=== PATIENT | female | born 1950 | race African-American/Black ===

== ENCOUNTER 2020-06-06 12:46 | Inpatient (IN) ==
[2020-06-06] MEDS ORDERED: METOCLOPRAMIDE 10 MG/2 ML VIAL IV STA (14:45)
[2020-06-06] MEDS ORDERED: ONDANSETRON 4 MG/2 ML VIAL IV STA (14:45)
[2020-06-06] MEDS ORDERED: SODIUM CHLORIDE 0.9% 1,000 ML IV STA (14:45)
[2020-06-06] MEDS ORDERED: PANTOPRAZOLE 40 MG VIAL IV STA (14:45)
[2020-06-06 15:09] LABS: Albumin 3.3 G/DL (3.4-5.0); Bilirubin,Total 0.8 MG/DL (0.2-1.0); Calcium 9.2 MG/DL (8.5-10.1); Osmolality,Calculated 288.8 MOS/KG (273-304); Potassium 4.3 MMOL/L (3.5-5.1)
[2020-06-06 15:10] LABS: Basophils % 0.1 % (0.0-0.8); Eosinophils # 0.1 10*3/uL (0.0-0.87); Eosinophils % 0.7 % (0.00-10.9); Hematocrit 41.6 VOL% (35.7-47.0); Immature Granulocytes % 0.4 %; Immature Granulocytes Absolute 0.03 #; Lymphocytes # 1.2 10*3/uL (1.4-4.0); Lymphocytes % 16.3 % (21.3-54.2); Mean Corpuscular HGB Conc 30.5 GM/DL (32-36); Mean Platelet Volume 10.5 FL (9.6-12.0); Monocytes % 8.6 % (1.7-12.7); Neutrophils % 73.9 % (38.7-73.9); Platelet Count 201 T/CUMM (130-400); Red Cell Distribution Width 15.5 % (9.3-17.3); White Blood Count 7.2 T/CUMM (4-12)
[2020-06-06 15:12] LABS: Hemoglobin 12.7 GM/DL (12.0-16.0)
[2020-06-06 15:15] LABS: Lymphocytes 16 % (20-55); Platelet Estimate Normal; Segmented Neutrophils 74 % (50-85); Total Cells Counted 100
[2020-06-06 15:16] LABS: Atypical Lymphocytes Few; Hypochromasia Slight; Microcytosis Slight; Polychromasia Slight
[2020-06-06 15:49] LABS: Troponin I < 0.015 NG/ML (0.00-0.045)
[2020-06-06] MEDS ORDERED: ONDANSETRON 4 MG/2 ML VIAL IV PRN (16:11)
[2020-06-06] MEDS ORDERED: GLUCAGON 1 MG VIAL IM PRN (16:11)
[2020-06-06] MEDS ORDERED: DEXTROSE 50% 25 GM/50 ML VIAL IV PRN (16:11)
[2020-06-06] MEDS ORDERED: AZITHROMYCIN INJ 500 MG in SODIUM CHLORIDE 0.9% 250 ML IV STA (16:15)
[2020-06-06] MEDS: LACTATED RINGERS 1,000 ML IV SCH (18:37)
[2020-06-06 18:49] LABS: Bacteria,Urine Occasional /HPF (Few); Bilirubin,Urine Negative (Negative); Blood, Urine Negative (Negative); Glucose,Urine (UA) Negative (Negative); Ketones,Urine 5 mg/dL (Negative); Mucus,Urine Occasional /LPF (Occasional); Nitrite,Urine Negative (Negative); Protein,Urine 30 MG/DL; RBC,Urine 3 /HPF (0-4); Squamous Epithelial Cell,Urine Occasional /HPF (0-10); Urine Appearance CLEAR (Clear); Urine Color Yellow (Yellow); Urine Specific Gravity 1.015 (1.001-1.035); WBC,Urine 9 /HPF (0-6)
[2020-06-06] MEDS: DOCUSATE SODIUM 100 MG CAPSULE PO SCH (21:00)
[2020-06-06] MEDS ORDERED: REMDESIVIR 200 MG in SODIUM CHLORIDE 0.9% 210 ML IV ONE (21:00)
[2020-06-06] MEDS: ENOXAPARIN 40 MG/0.4 ML SYRINGE SUBCUT SCH (21:53)
[2020-06-06] MEDS: INSULIN LISPRO 100 UNIT/ML SUBCUT SCH (21:53)
[2020-06-07] MEDS: LACTATED RINGERS 1,000 ML IV SCH ×3 (05:23→15:36)
[2020-06-07] MEDS: PANTOPRAZOLE 40 MG TABLET PO SCH (05:58)
[2020-06-07 06:48] LABS: Calcium 8.8 MG/DL (8.5-10.1); Potassium 3.9 MMOL/L (3.5-5.1)
[2020-06-07] MEDS: DOCUSATE SODIUM 100 MG CAPSULE PO SCH ×2 (08:20→20:08)
[2020-06-07] MEDS: ZINC GLUCONATE 50 MG TABLET PO SCH (08:20)
[2020-06-07] MEDS: DEXAMETHASONE 4 MG TABLET PO SCH ×3 (08:20→20:08)
[2020-06-07] MEDS: CHOLECALCIFEROL 5,000 UNIT TABLET PO SCH (08:20)
[2020-06-07] MEDS: METOPROLOL SUCCINATE XL 100 MG TABLET PO SCH (08:21)
[2020-06-07] MEDS: ASCORBIC ACID 500 MG TABLET PO SCH (08:21)
[2020-06-07] MEDS: INSULIN LISPRO 100 UNIT/ML SUBCUT SCH ×4 (08:22→20:08)
[2020-06-07] MEDS: cefTRIAXone 1,000 MG in SYRINGE 1 EACH IV SCH (08:23)
[2020-06-07] MEDS: REMDESIVIR 100 MG in SODIUM CHLORIDE 0.9% 100 ML IV SCH (09:18)
[2020-06-07] MEDS: sitaGLIPtin 100 MG TABLET PO SCH ×2 (11:27→16:00)
[2020-06-07] MEDS: ENOXAPARIN 40 MG/0.4 ML SYRINGE SUBCUT SCH (20:09)
[2020-06-08] MEDS: LACTATED RINGERS 1,000 ML IV SCH ×3 (00:31→15:38)
[2020-06-08 06:03] LABS: Basophils % 0.3 % (0.0-0.8); Hematocrit 39.5 VOL% (35.7-47.0); Immature Granulocytes % 1.2 %; Immature Granulocytes Absolute 0.04 #; Lymphocytes # 0.7 10*3/uL (1.4-4.0); Lymphocytes % 19.1 % (21.3-54.2); Mean Corpuscular HGB Conc 30.4 GM/DL (32-36); Mean Corpuscular Volume 80.8 FL (87-102); Mean Platelet Volume 9.9 FL (9.6-12.0); Monocytes % 3.8 % (1.7-12.7); Neutrophils % 75.6 % (38.7-73.9); Platelet Count 238 T/CUMM (130-400); Red Blood Count 4.89 MC/CUMM (3.8-5.5); Red Cell Distribution Width 15.2 % (9.3-17.3); White Blood Count 3.5 T/CUMM (4-12)
[2020-06-08] MEDS: PANTOPRAZOLE 40 MG TABLET PO SCH (06:27)
[2020-06-08 06:28] LABS: Atypical Lymphocytes Few; Band Neutrophils 2 % (0-10); Hypochromasia 1+; Lymphocytes 23 % (20-55); Microcytosis 1+; Ovalocytes Slight; Platelet Estimate Normal; Promyelocytes 2 %; Segmented Neutrophils 71 % (50-85); Total Cells Counted 100
[2020-06-08 06:28] LABS: Albumin 2.5 G/DL (3.4-5.0); Bilirubin,Direct 0.19 MG/DL (0.0-0.20); Bilirubin,Indirect 0.3 MG/DL (0.0-1.0); Bilirubin,Total 0.5 MG/DL (0.2-1.0); Calcium 9.3 MG/DL (8.5-10.1); Osmolality,Calculated 293.5 MOS/KG (273-304); Potassium 4.6 MMOL/L (3.5-5.1); Total Protein 7.6 G/DL (5.0-7.5)
[2020-06-08] MEDS ORDERED: SODIUM CHLORIDE 0.9% 1,000 ML IV PRN (07:52)
[2020-06-08] MEDS: INSULIN LISPRO 100 UNIT/ML SUBCUT SCH ×4 (07:53→20:10)
[2020-06-08] MEDS: sitaGLIPtin 100 MG TABLET PO SCH ×3 (07:54→15:37)
[2020-06-08] MEDS: cefTRIAXone 1,000 MG in SYRINGE 1 EACH IV SCH (07:54)
[2020-06-08] MEDS: ASCORBIC ACID 500 MG TABLET PO SCH (07:59)
[2020-06-08] MEDS: METOPROLOL SUCCINATE XL 100 MG TABLET PO SCH (07:59)
[2020-06-08] MEDS: DOCUSATE SODIUM 100 MG CAPSULE PO SCH ×2 (07:59→21:18)
[2020-06-08] MEDS: ZINC GLUCONATE 50 MG TABLET PO SCH (08:00)
[2020-06-08] MEDS: CHOLECALCIFEROL 5,000 UNIT TABLET PO SCH (08:00)
[2020-06-08] MEDS: DEXAMETHASONE 4 MG TABLET PO SCH ×2 (08:00→20:10)
[2020-06-08] MEDS: REMDESIVIR 100 MG in SODIUM CHLORIDE 0.9% 100 ML IV SCH (09:06)
[2020-06-08] MEDS: INSULIN GLARGINE 100 UNIT/ML SUBCUT SCH (20:10)
[2020-06-08] MEDS: ENOXAPARIN 40 MG/0.4 ML SYRINGE SUBCUT SCH (20:10)
[2020-06-09] MEDS: PANTOPRAZOLE 40 MG TABLET PO SCH (06:20)
[2020-06-09] MEDS: sitaGLIPtin 100 MG TABLET PO SCH ×3 (09:15→16:18)
[2020-06-09] MEDS: INSULIN LISPRO 100 UNIT/ML SUBCUT SCH ×4 (09:15→20:56)
[2020-06-09] MEDS: CHOLECALCIFEROL 5,000 UNIT TABLET PO SCH (09:16)
[2020-06-09] MEDS: DEXAMETHASONE 4 MG TABLET PO SCH ×2 (09:16→20:55)
[2020-06-09] MEDS: ZINC GLUCONATE 50 MG TABLET PO SCH (09:16)
[2020-06-09] MEDS: ASCORBIC ACID 500 MG TABLET PO SCH (09:16)
[2020-06-09] MEDS: cefTRIAXone 1,000 MG in SYRINGE 1 EACH IV SCH (09:17)
[2020-06-09] MEDS: DOCUSATE SODIUM 100 MG CAPSULE PO SCH ×2 (09:17→20:55)
[2020-06-09] MEDS: METOPROLOL SUCCINATE XL 100 MG TABLET PO SCH (09:17)
[2020-06-09] MEDS: LACTATED RINGERS 1,000 ML IV SCH ×2 (09:18)
[2020-06-09] MEDS: REMDESIVIR 100 MG in SODIUM CHLORIDE 0.9% 100 ML IV SCH (09:19)
[2020-06-09] MEDS: ACETAMINOPHEN 325 MG TABLET PO PRN (20:55)
[2020-06-09] MEDS: INSULIN GLARGINE 100 UNIT/ML SUBCUT SCH (20:56)
[2020-06-09] MEDS: ENOXAPARIN 40 MG/0.4 ML SYRINGE SUBCUT SCH (20:57)
[2020-06-10] MEDS: hydrALAZINE 20 MG/1 ML VIAL IV PRN (00:44)
[2020-06-10] MEDS: LACTATED RINGERS 1,000 ML IV SCH (04:47)
[2020-06-10 05:44] LABS: Basophils % 0.3 % (0.0-0.8); Hematocrit 37.2 VOL% (35.7-47.0); Hemoglobin 11.7 GM/DL (12.0-16.0); Immature Granulocytes % 2.1 %; Immature Granulocytes Absolute 0.25 #; Lymphocytes # 1.4 10*3/uL (1.4-4.0); Lymphocytes % 12.2 % (21.3-54.2); Mean Corpuscular HGB Conc 31.5 GM/DL (32-36); Mean Corpuscular Volume 77.3 FL (87-102); Mean Platelet Volume 10.1 FL (9.6-12.0); Monocytes % 4.5 % (1.7-12.7); NRBC # 0.02 10*3/uL; Neutrophils % 80.9 % (38.7-73.9); Platelet Count 304 T/CUMM (130-400); Red Blood Count 4.81 MC/CUMM (3.8-5.5); Red Cell Distribution Width 15.1 % (9.3-17.3); White Blood Count 11.7 T/CUMM (4-12)
[2020-06-10] MEDS: PANTOPRAZOLE 40 MG TABLET PO SCH (05:56)
[2020-06-10 05:58] LABS: Calcium 8.9 MG/DL (8.5-10.1); Osmolality,Calculated 294.7 MOS/KG (273-304); Potassium 3.8 MMOL/L (3.5-5.1)
[2020-06-10 06:08] LABS: Hypochromasia 1+; Lymphocytes 6 % (20-55); Segmented Neutrophils 86 % (50-85); Total Cells Counted 100
[2020-06-10 06:09] LABS: Microcytosis 1+; Ovalocytes Slight; Target Cells Slight
[2020-06-10] MEDS: INSULIN LISPRO 100 UNIT/ML SUBCUT SCH ×4 (08:44→20:31)
[2020-06-10] MEDS: sitaGLIPtin 100 MG TABLET PO SCH ×3 (08:45→16:11)
[2020-06-10] MEDS: cefTRIAXone 1,000 MG in SYRINGE 1 EACH IV SCH (08:45)
[2020-06-10] MEDS: DEXAMETHASONE 4 MG TABLET PO SCH ×2 (08:47→20:31)
[2020-06-10] MEDS: ASCORBIC ACID 500 MG TABLET PO SCH (08:47)
[2020-06-10] MEDS: DOCUSATE SODIUM 100 MG CAPSULE PO SCH ×2 (08:47→20:31)
[2020-06-10] MEDS: METOPROLOL SUCCINATE XL 100 MG TABLET PO SCH (08:47)
[2020-06-10] MEDS: CHOLECALCIFEROL 5,000 UNIT TABLET PO SCH (08:47)
[2020-06-10] MEDS: REMDESIVIR 100 MG in SODIUM CHLORIDE 0.9% 100 ML IV SCH (08:47)
[2020-06-10] MEDS: ZINC GLUCONATE 50 MG TABLET PO SCH (08:48)
[2020-06-10] MEDS ORDERED: POTASSIUM CHLORIDE RIDER 10 MEQ in PREMIX 1 EACH IV PRN (09:47)
[2020-06-10] MEDS ORDERED: MAGNESIUM SULF RIDER 2 GM in PREMIX 1 EACH IV PRN (09:47)
[2020-06-10] MEDS ORDERED: MAGNESIUM SULF RIDER 4 GM in PREMIX 1 EACH IV PRN (09:47)
[2020-06-10] MEDS: ACETAMINOPHEN 325 MG TABLET PO PRN (11:40)
[2020-06-10] MEDS: ENOXAPARIN 40 MG/0.4 ML SYRINGE SUBCUT SCH (20:31)
[2020-06-10] MEDS: INSULIN GLARGINE 100 UNIT/ML SUBCUT SCH (20:31)
[2020-06-11] MEDS: PANTOPRAZOLE 40 MG TABLET PO SCH (06:14)
[2020-06-11] MEDS: sitaGLIPtin 100 MG TABLET PO SCH ×3 (07:51→16:33)
[2020-06-11] MEDS: INSULIN LISPRO 100 UNIT/ML SUBCUT SCH ×4 (07:51→20:19)
[2020-06-11] MEDS: ASCORBIC ACID 500 MG TABLET PO SCH (08:40)
[2020-06-11] MEDS: ZINC GLUCONATE 50 MG TABLET PO SCH (08:40)
[2020-06-11] MEDS: DOCUSATE SODIUM 100 MG CAPSULE PO SCH ×2 (08:40→20:21)
[2020-06-11] MEDS: METOPROLOL SUCCINATE XL 100 MG TABLET PO SCH (08:40)
[2020-06-11] MEDS: cefTRIAXone 1,000 MG in SYRINGE 1 EACH IV SCH (08:40)
[2020-06-11] MEDS: DEXAMETHASONE 4 MG TABLET PO SCH (08:40)
[2020-06-11] MEDS: CHOLECALCIFEROL 5,000 UNIT TABLET PO SCH (08:40)
[2020-06-11] MEDS ORDERED: INSULIN LISPRO 100 UNIT/ML SUBCUT ONE (18:15)
[2020-06-11] MEDS: ENOXAPARIN 40 MG/0.4 ML SYRINGE SUBCUT SCH (20:19)
[2020-06-11] MEDS: INSULIN GLARGINE 100 UNIT/ML SUBCUT SCH (20:19)
[2020-06-11] MEDS: hydrALAZINE 20 MG/1 ML VIAL IV PRN (23:53)
[2020-06-12 04:40] LABS: Basophils # 0.1 10*3/uL (0.0-0.2); Basophils % 0.4 % (0.0-0.8); Hematocrit 37.9 VOL% (35.7-47.0); Hemoglobin 11.9 GM/DL (12.0-16.0); Immature Granulocytes % 3.5 %; Immature Granulocytes Absolute 0.43 #; Lymphocytes # 3.4 10*3/uL (1.4-4.0); Lymphocytes % 27.8 % (21.3-54.2); Mean Corpuscular HGB Conc 31.4 GM/DL (32-36); Mean Platelet Volume 9.5 FL (9.6-12.0); Monocytes % 8.7 % (1.7-12.7); NRBC # 0.05 10*3/uL; Neutrophils % 59.6 % (38.7-73.9); Platelet Count 336 T/CUMM (130-400); Red Blood Count 4.92 MC/CUMM (3.8-5.5); Red Cell Distribution Width 15.3 % (9.3-17.3); White Blood Count 12.1 T/CUMM (4-12)
[2020-06-12 04:59] LABS: Calcium 8.7 MG/DL (8.5-10.1); Osmolality,Calculated 287.3 MOS/KG (273-304); Potassium 3.4 MMOL/L (3.5-5.1)
[2020-06-12 05:09] LABS: Lymphocytes 25 % (20-55); Platelet Estimate Adequate; Segmented Neutrophils 73 % (50-85); Total Cells Counted 100
[2020-06-12 05:10] LABS: Hypochromasia Slight; Microcytosis Slight
[2020-06-12] MEDS: PANTOPRAZOLE 40 MG TABLET PO SCH (05:37)
[2020-06-12] MEDS: INSULIN LISPRO 100 UNIT/ML SUBCUT SCH ×4 (07:46→20:25)
[2020-06-12] MEDS: sitaGLIPtin 100 MG TABLET PO SCH ×3 (07:46→16:25)
[2020-06-12] MEDS: ACETAMINOPHEN 325 MG TABLET PO PRN (07:49)
[2020-06-12] MEDS: POTASSIUM CHLORIDE 20 MEQ TABLET PO PRN ×3 (07:49→11:30)
[2020-06-12] MEDS: cefTRIAXone 1,000 MG in SYRINGE 1 EACH IV SCH (08:45)
[2020-06-12] MEDS: ASCORBIC ACID 500 MG TABLET PO SCH (09:24)
[2020-06-12] MEDS: ZINC GLUCONATE 50 MG TABLET PO SCH (09:24)
[2020-06-12] MEDS: CHOLECALCIFEROL 5,000 UNIT TABLET PO SCH (09:24)
[2020-06-12] MEDS: DOCUSATE SODIUM 100 MG CAPSULE PO SCH ×2 (09:24→20:28)
[2020-06-12] MEDS: DEXAMETHASONE 4 MG TABLET PO SCH (09:25)
[2020-06-12] MEDS: METOPROLOL SUCCINATE XL 100 MG TABLET PO SCH (09:25)
[2020-06-12] MEDS: INSULIN GLARGINE 100 UNIT/ML SUBCUT SCH (20:25)
[2020-06-12] MEDS: ENOXAPARIN 40 MG/0.4 ML SYRINGE SUBCUT SCH (20:25)
[2020-06-13] MEDS: hydrALAZINE 20 MG/1 ML VIAL IV PRN (04:25)
[2020-06-13] MEDS: PANTOPRAZOLE 40 MG TABLET PO SCH (06:05)
[2020-06-13] MEDS: sitaGLIPtin 100 MG TABLET PO SCH (07:33)
[2020-06-13 08:03] VITALS: BP 146/71
[2020-06-13] MEDS: INSULIN LISPRO 100 UNIT/ML SUBCUT SCH (08:37)
[2020-06-13] MEDS: CHOLECALCIFEROL 5,000 UNIT TABLET PO SCH (08:38)
[2020-06-13] MEDS: ZINC GLUCONATE 50 MG TABLET PO SCH (08:38)
[2020-06-13] MEDS: DEXAMETHASONE 4 MG TABLET PO SCH (08:39)
[2020-06-13] MEDS: METOPROLOL SUCCINATE XL 100 MG TABLET PO SCH (08:39)
[2020-06-13] MEDS: ACETAMINOPHEN 325 MG TABLET PO PRN (08:39)
[2020-06-13] MEDS: ASCORBIC ACID 500 MG TABLET PO SCH (08:39)
[2020-06-13] MEDS: DOCUSATE SODIUM 100 MG CAPSULE PO SCH ×2 (08:39→10:02)
[2020-06-13] MEDS: cefTRIAXone 1,000 MG in SYRINGE 1 EACH IV SCH (08:40)
== END 2020-06-13 10:50 | disposition home or self-care (01) | DRG 177 ==
LOC: N.EDINP 12:46 → N.ED 12:46 → N.2E 17:47
PROVIDERS: ADMIT Family Medicine; ATTEND Family Medicine